=== PATIENT | male | born 1970 | race Two or more races ===

== ENCOUNTER 2019-12-31 00:47 | Emergency (ER) | payer MEDICAID ==
--- NOTE | 2019-12-31 01:51 | RADIOLOGY REPORT (SQ) ---
CLINICAL INDICATION: bone pain. . TECHNIQUE: 3 view(s) were obtained of the left ankle. COMPARISON: None. FINDINGS: No acute displaced fracture is identified of the ankle. Alignment appears anatomic. Joint spaces are within normal limits for age. Soft tissue swelling. IMPRESSION: No evidence of acute displaced fracture of the ankle.
--- NOTE | 2019-12-31 05:13 | ER Document Report ---
Entered by AURE SOLITARIO SCRIBE 12/31/19 0458 Acting as scribe for:IRENA MUELLER DO ED Extremity Problem, Lower - General Chief Complaint: Ankle Pain Stated Complaint: LEFT ANKLE PAIN Time Seen by Provider: 12/31/19 04:56 Primary Care Provider: JOSE HAWK DO [ACTIVE STAFF] - Follow up as needed Mode of Arrival: Wheelchair Information source: Patient Notes: This 49 year old male patient presents to the ED today with complaints of left ankle pain and swelling that started yesterday evening. 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 He reports a history of fractures and sprains to his left ankle in the past and states that the pain/swelling is a recurrent problem for him. He also notes a history of muscle cramps in his left calf and sciatica. Denies any abdominal pain, knee pain, or history of ulcers. TRAVEL OUTSIDE OF THE [place] IN LAST 30 DAYS: No - Related Data Allergies/Adverse Reactions: No Known Allergies Allergy (Verified 04/27/15 10:13) Past Medical History - General Information source: Patient - Social History Smoking Status: Never Smoker Cigarette use (# per day): No Chew tobacco use (# tins/day): No Smoking Education Provided: No Family History: Reviewed & Not Pertinent Patient has suicidal ideation: No Patient has homicidal ideation: No Review of Systems - Review of Systems Constitutional: No symptoms reported EENT: No symptoms reported Cardiovascular: No symptoms reported Respiratory: No symptoms reported Gastrointestinal: See HPI. denies: Abdominal pain Genitourinary: No symptoms reported Male Genitourinary: No symptoms reported Musculoskeletal: See HPI, Joint pain - Left ankle, Joint swelling - Left ankle Skin: No symptoms reported Hematologic/Lymphatic: No symptoms reported Neurological/Psychological: No symptoms reported -: Yes All other systems reviewed and negative Physical Exam - Vital signs Vitals: Temp Pulse Resp BP Pulse Ox 98.9 F 98 16 180/92 H 96 12/31/19 01:00 12/31/19 01:00 12/31/19 01:00 12/31/19 01:00 12/31/19 01:00 - General General appearance: Alert In distress: None - HEENT Head: Normocephalic, Atraumatic Eyes: Normal Pupils: PERRL - Respiratory Respiratory status: No respiratory distress Chest status: Nontender Breath sounds: Normal Chest palpation: Normal - Cardiovascular Rhythm: Regular Heart sounds: Normal auscultation Murmur: No Friction rub: No Gallop: None auscultated - Abdominal Inspection: Normal Distension: No distension Bowel sounds: Normal Tenderness: Nontender - Abdomen soft Organomegaly: No organomegaly - Back Back: Normal, Nontender - Extremities General upper extremity: Normal inspection Calf: Other - Muscle hypertrophy left calf Ankle: Tender - Tenderness to palpation of medial and lateral aspects of left ankle, Edema - Soft tissue swelling noted to left ankle - Neurological Neuro grossly intact: Yes Cognition: Normal Orientation: AAOx4 [place] Coma Scale Eye Opening: Spontaneous [place] Coma Scale Verbal: Oriented [place] Coma Scale Motor: Obeys Commands [place] Coma Scale Total: 15 Speech: Normal Motor strength normal: LUE, RUE, LLE, RLE Sensory: Normal - Psychological Associated symptoms: Normal affect, Normal mood - Skin Skin Temperature: Warm Skin Moisture: Dry Skin Color: Normal Course - Vital Signs Vital signs: Temp Pulse Resp BP Pulse Ox 98.6 F 78 18 151/98 H 98 12/31/19 04:35 12/31/19 04:35 12/31/19 04:35 12/31/19 04:35 12/31/19 04:35 Discharge - Discharge Clinical Impression: Left ankle pain Qualifiers: Chronicity: acute Qualified Code(s): M25.572 - Pain in left ankle and joints of left foot Condition: Stable Disposition: HOME, SELF-CARE Instructions: Earl Wrap ([facility]), Ice & Elevation ([facility]), Sprained Ankle ([facility]) Additional Instructions: Rest, ice and elevate left ankle. Get quinine containing tonic water at the [employer] store for the leg cramps. Take the medicine as perscribed. Please return here for any problems or concerns. Referrals: JOSE HAWK, [ACTIVE STAFF] - Follow up as needed I personally performed the services described in the documentation, reviewed and edited the documentation which was dictated to the scribe in my presence, and it accurately records my words and actions.
[2019-12-31] MEDS ORDERED: IBUPROFEN 600 MG TABLET PO ONE (05:14)
[2019-12-31 05:51] VITALS: BP 131/84
== END 2019-12-31 05:50 | disposition home or self-care (01) ==
LOC: ER 00:47
DX: M25.572 Pain in left ankle and joints of left foot (principal); M25.472 Effusion, left ankle; Z87.828 Personal history of other (healed) physical injury and trauma
CPT/HCPCS: 99283; 73610; J3490